=== PATIENT | male | born 1950 | race Caucasian/White ===

== ENCOUNTER 2024-01-31 07:57 | Day surgery (SDC) | payer OTHER, MEDICARE ==
[2024-01-30 13:33] VITALS: BMI 38.0
[2024-01-31] MEDS ORDERED: LIDOCAINE HCL/PF 2% SDV 5ML VIAL ONE (08:25)
[2024-01-31] MEDS ORDERED: PROPOFOL 200 ML ONE (08:25)
[2024-01-31 09:40] VITALS: TEMP 97.8
[2024-01-31 10:03] VITALS: BP 121/64; PULSE 92; RESP 18
== END 2024-01-31 10:04 | disposition home or self-care (01) ==
LOC: FASU-ENDO 07:57
PROVIDERS: ATTEND Internal Medicine Gastroenterology
PROC: 0DBN8ZX Excision of Sigmoid Colon, Via Natural or Artificial Opening Endoscopic, Diagnostic (ICD-10-PCS; principal; 2024-01-31 09:07)
DX: Z12.11 Encounter for screening for malignant neoplasm of colon (principal); K63.5 Polyp of colon; K57.30 Diverticulosis of large intestine without perforation or abscess without bleeding; K64.1 Second degree hemorrhoids; K64.8 Other hemorrhoids
CPT/HCPCS: 88305-TC